=== PATIENT | female | born 1955 | race Caucasian/White ===

== ENCOUNTER 2017-05-14 08:17 | Observation (INO) ==
[2017-05-14] MEDS ORDERED: Naloxone 0.4 MG/ML INJ IVP PRN (12:13)
--- NOTE | 2017-05-14 12:18 | Cardiology History & Physical ---
Date of Encounter: 05/14/17 Time of Encounter: 12:15 Assessment and Plan (1) Chest pain Current Visit: Yes Status: Acute Per Cardiology: Chest pressure during nuclear stress test 12/20. Qualifiers: Qualified Code(s): I20.0 - Unstable angina (2) Abnormal stress test Current Visit: No Status: Acute Per Cardiology: History of abnormal stress test July 2013 with ECG of ischemia with [address] depression noted in the inferior leads and 1-2 mm horizontal to downsloping ST depression in anterior precordial leads with exercise. Chest pain -free during that stress test. He should again with significant ST depression, experienced chest pressure 6 out of 10, required his Oxygen and IV Beta Adalberto. Nuclear Pictures Pending. Patient Reviewed and Discussed with Dr. Cook , patient to be directly admitted to cardiology for left heart catheterization today. Discussed and reviewed with Dr. Pineda and Dr. Gautam. Further recommendations after catheterization. Labs pending. Had outpatient echo pending as well, we'll complete as inpatient (3) CAD (coronary artery disease), mo[place] coronary artery Current Visit: No Status: Chronic Per Cardiology: Known history of CAD with last catheterization June 2013 which showed left main 25%, proximal LAD 25%, mid LAD 65% with FFR of 0.83, proximal to mid 30-40 % RCA, 90% proximal circumflex with drug-eluting stent. Has intolerance to statins due to myalgias. On aspirin, beta adalberto, AKASH inhibitor, and long- acting nitrate. Qualifiers: [place] vs. transplanted heart: mohegan heart Associated angina: with unstable angina Qualified Code(s): I25.110 - Atherosclerotic heart disease of [place] coronary artery with unstable angina pectoris History of Present Illness Chief complaint: CP HPI: Ms. Franklin is a 61 year old female with a relevant past medical history of CAD, hypertension, DM 2, dyslipidemia. Past history of nicotine abuse. Patient seen by Dr. Fiona Severino March 2017 and exercise nuclear stress test ordered for increasing fatigue and mild dyspnea on exertion. Patient seen today during exercise nuclear stress test and developed midsternal heaviness 6 out of 10 during exertional stress test. Additionally developed significant ST depression noted. Patient required nasal cannula oxygen and IV Lopressor 2.5 mg 1 for resolution of chest pain, ST changes, and blood pressure optimization. Patient reports at home has not been experiencing any chest pain, however reports with cold has noticed chest burning. She admits to increased fatigue and increased dyspnea on exertion. She denies any palpitations, dizziness, syncopal because of falls. Denies any active bleeding or blood loss. Reports has not utilized nitroglycerin pills. She reports heart attack a few years ago with stenting and had remaining blockage that was "being monitored ". Past Med Surg Social Fam HX - Past Medical History Attestation: Yes The following information was validated with the patient. Source: patient, old records reviewed Medical history: asthma, diabetes, GERD, hyperlipidemia, hypertension, myocardial infarction Psychiatric history: anxiety, depression - Past Surgical History Surgical History: - Social History Smoking Status: Former smoker Smokeless Tobacco Status: No Alcohol use: none Drug use: none - Family History Mother Adopted: No Family Member Ethnicity: Non- Living Status: Still Living Hx Family Cardiac Disorders: No Hx Family Respiratory Disorders: No Hx Family Cancer: No Father Adopted: No Family Member Ethnicity: Non- Living Status: Hx Family Cardiac Disorders: Yes Hx Family Respiratory Disorders: No Hx Family Cancer: Yes Hx Family Endocrine Disorder: Yes Brother Adopted: No Family Member Ethnicity: Non- Living Status: Still Living Hx Family Cardiac Disorders: Yes Hx Family Respiratory Disorders: No Hx Family Cancer: No Hx Family GI Disorders: No Medications and Allergies Insulin DETEMIR [Levemir Flextouch] 60 unit SQ BID 09/02/15 [History] Isosorbide MONOnitrate (24 HR) [Imdur] 30 mg PO DAILY 09/02/15 [History] Lisinopril [Zestril] 5 mg PO BID 09/02/15 [History] Metoprolol [Lopressor] 25 mg PO BID 09/02/15 [History] Omeprazole [PriLOSEC] 20 mg PO DAILY 09/02/15 [History] Paroxetine [Paxil] 10 mg PO DAILY 09/02/15 [History] hydroCHLOROthiazide [Hydrochlorothiazide] 25 mg PO DAILY 09/02/15 [History] Aspirin/Calcium Carbonate/Mag [Aspirin Buffered 325 mg Tab] 325 mg PO DAILY #30 tablet 09/04/15 [Rx] Ibuprofen [Motrin] 800 mg PO Q8HR PRN 05/14/17 [History] 3 Allergy/AdvReac Type Severity Reaction Status Date / Time Smxpzku-Nbc-Kzj Reductase AdvReac Muscle Pain Verified 12/31/15 00:01 Inhibitor [Statins] All Systems Review: A 10-system review of systems was performed and is negative for pertinent findings except as documented above in the HPI. - Constitutional Constitutional: fatigue - Cardiovascular Cardiovascular: as per HPI, chest pain with exertion, dyspnea on exertion Physical Examination General: Conversant, No Apparent Distress HEENT: Atraumatic, Normocephaly, Mucus Membranes Moist Neck: No JVD, Normal carotid pulses Cardiac: Reg Rate and Rhythm, Normal S1 and S2, No Murmur Lungs: Normal Breath Sounds, No Wheeze, Rales, Rhonchi Neuro: Alert and responsive, No focal deficits noted Abdomen: Soft, Non-Tender Skin: No rashes noted on visualized skin Musculoskeletal: No Chest Wall Tenderness Extremities: No Clubbing, No Cyanosis, No Edema, Normal Pulses Results 05/14/17 12:49 05/14/17 12:49 - Imaging and Cardiology Stress Test: pending Cardiac cath: pending - EKG Interpretation EKG results cardiology: personally reviewed, other (ST depression with CP 6/10 during exercise nuclear stress test) - VTE Reasons for not Prescribing Prophylaxis: Treatment not Indicated - Low risk for VTE
[2017-05-14] MEDS ORDERED: *HR* Metoprolol 5 MG/5 ML VIAL IVP ONE (12:39)
[2017-05-14 13:11] LABS: Basophils # 0.1 K/mcL (0.0-0.2); Basophils % 0.6 %; Eosinophils # 0.6 K/mcL (0.0-0.6); Eosinophils % 6.4 %; Hematocrit 35.4 % (35.3-44.9); Hemoglobin 11.1 g/dL (11.5-15.4); Immature Granulocytes % 0.7 % (0-4); Lymphocytes # 2.2 K/mcL (0.6-4.6); Lymphocytes % 24.4 %; Mean Corpuscular HGB Conc 31.4 g/dL (31.6-35.5); Mean Corpuscular Hemoglobin 23.9 pg (28.0-33.3); Mean Corpuscular Volume 76.1 fL (83.0-100.0); Mean Platelet Volume 9.5 fL (9.4-12.4); Monocytes # 0.5 K/mcL (0.0-1.3); Monocytes % 5.7 %; Neutrophils # 5.5 K/mcL (1.6-8.9); Platelet Count 284 K/mcL (140-400); Red Blood Count 4.65 M/mcL (3.82-4.97); Red Cell Distribution Width 15.9 % (11.5-14.5); Segmented Neutrophils % 62.2 %
[2017-05-14 13:16] LABS: Prothrombin Time 10.3 Seconds (9.4-12.1)
[2017-05-14] MEDS ORDERED: Ibuprofen 800 MG TABLET PO PRN (13:17)
[2017-05-14 13:23] LABS: BUN/Creatinine Ratio 28 (6-26); Blood Urea Nitrogen 19 mg/dL (7-20); Carbon Dioxide 26 mEq/L (19-29); Chloride 101 mEq/L (98-109); Glucose 140 mg/dL (70-99); Osmolality,Calculated 291 (280-300); Potassium 3.8 mEq/L (3.5-4.5); Sodium 138 mEq/L (136-145); eGFR For African Americans > 60 (> 60); eGFR For Non-African Americans > 60 (> 60)
[2017-05-14] MEDS: Aspirin Enteric Coated 325 MG Tablet PO SCH (13:38)
[2017-05-14] MEDS ORDERED: Nitroglycerin 1,000 MCG/10 ML VIAL IV ONE (15:16)
[2017-05-14] MEDS ORDERED: 0.9 % Sodium Chloride 2,000 ML ONE (15:16)
[2017-05-14] MEDS ORDERED: Heparin 1,000 UNITS/500 mL NS 500 ML ONE (15:16)
[2017-05-14] MEDS ORDERED: *HR* Heparin 10,000 UNIT/10 ML VIAL ONE (15:16)
[2017-05-14] MEDS ORDERED: *HR* Midazolam HCl 2 MG/2 ML VIAL ONE (15:21)
[2017-05-14] MEDS ORDERED: *HR* Bivalirudin 250 MG VIAL IVC ONE (16:16)
[2017-05-14] MEDS ORDERED: *HR* Ticagrelor 90 MG TABLET ONE (16:27)
[2017-05-14] MEDS ORDERED: 0.9 % Sodium Chloride 1,000 ML IVC SCH (16:45)
--- NOTE | 2017-05-14 16:48 | Invasive Diagnostic Lab Proc ---
Name: Lisbeth Franklin Date of Study: 05/14/2017 Date: 1955 Ht: 64.0in Medical Record#: [id number] Age: 61 Wt: 198.42lb Gender: Female BSA: 1.95 Order #: [id number] BMI: 34.06 Physicians Procedure Physician: Mark Gautam DO Referring MD: Referring MD: Staff Name Position Time In Day Jasso RT (R) Scrub 03:35 PM Chanelle Matos RN Monitor 03:35 PM Nguyen Carreon RN Energy Economist 03:35 PM Indications Indication Abnormal Test - Stress Procedures Performed Procedure L HRT ARTERY/VENTRICLE ANGIO PRQ CARD CLARENCE STENT W/ANGIO 1 VSL Pre-Procedure Checklist Informed consent is complete signed and on chart. H&P is on chart. ID band is on and ID verified with patient. Patient NPO for procedure The procedure was described for the patient and questions were answered. Blood Pressure: 154/79 ECG is on chart. Rhythm: NSR Plan of Care Patient will tolerate the procedure without complications. Adequate level of comfort will be maintained. Hemodynamics will remain stable Patient will recover from procedure without complications. Respiratory function will be maintained. Cardiac rhythm will remain stable. Patient temperature will be maintained. Patient and/or family have verbalized understanding of the procedure. Patient Education Chief Complaint/Reason for Test: Cardiac Cath Developmental Category: Adult (18-64 years) Developmentally Appropriate for Age: Yes Learning Barriers: None Education Needs: Procedure Education Method: Verbal Information Taught: Cardiac Cath Educational Evaluation: Able to repeat information Intravenous Access Time IV Size Location DC'd Fluid/Drip Rate Units RN 03:24 PM 22g 1" Patent On Arrival Rt Hand 0.9NaCl 25 ml/hr Chanelle Matos RN Allergies Simvastatin Qzkkgbv-Qtm-Wzi Reductase Inhibitor Vital Signs Time BP (mmHg) HR (bpm) O2 Sat. RR (bpm) LOC 03:23 PM 154 / 79 70 98 % 16 5 = Fully awake and oriented or at pre-proc level 03:39 PM / % 5 = Fully awake and oriented or at pre-proc level 03:39 PM / % 4 = Oriented but drowsy 04:03 PM / % 4 = Oriented but drowsy 03:36 PM 158 / 82 79 99 % 12 03:40 PM 156 / 77 72 100 % 20 03:45 PM 142 / 67 70 99 % 15 03:50 PM 136 / 68 69 99 % 18 03:55 PM 131 / 67 68 99 % 17 04:00 PM 134 / 62 66 99 % 17 04:05 PM 148 / 74 65 100 % 9 04:10 PM 153 / 73 67 100 % 10 04:15 PM 162 / 75 68 100 % 21 04:20 PM 169 / 79 57 100 % 16 04:25 PM 171 / 84 73 98 % 12 Procedural Medications Time Medication Dose Units Method Given By 03:39 PM Versed 2 mg Intravenous Nguyen Carreon RN 04:04 PM Lidocaine 2% 10 ml Subcutaneous Mark Gautam DO 04:13 PM Angiomax 0.75mg/kg bolus: 13.5 ml Intravenous Nguyen Carreon RN 04:13 PM Angiomax 1.75mg/kg/hr: 31.5 ml Intravenous Nguyen Carreon RN 04:22 PM Nitroglycerin 100 mcg Intracoronary Mark Gautam DO 04:26 PM Angiomax 1.75mg/kg/hr: ml Dc'd Nguyen Carreon RN 04:26 PM Brilinta 180 mg Orally Nguyen Carreon RN ASA Classification: CLASS III- Severe systemic disease (i.e. prior AMI, diabetes with vascular complications, morbid obesity) Lj Score Preprocedure Postprocedure Activity 2- Moves 4 extremities sustained head lift Activity 2- Moves 4 extremities sustained head lift Circulation 2- SBP +/= 20 points of pre-anesthetic level Circulation 2- SBP +/= 20 points of pre-anesthetic level Consciousness 2- Awake and alert oriented x 3 Consciousness 2- Awake and alert oriented x 3 O2 Saturation 2- Able to maintain O2 satruation of 92% on room air O2 Saturation 2- Able to maintain O2 satruation of 92% on room air Respiratory 2- Able to deep breathe and cough well Respiratory 2- Able to deep breathe and cough well Total Score 10 Total Score 10 Contrast Agent: Isovue Diagnostic Contrast: 90 ml Total Contrast: 90 ml Fluoro Dose: 612 mGy Procedure Log Time Note Enter By 03:26 PM Pt arrived to labor gang supervisor 2 at 15:26 [facility] 03:34 PM Vitals capture started with the following parameters, Patient=Adult, Interval=5 min, Initial Hbpjseny=709 mmHg, Deflation Rate=5 mmHg, Cuff placed on Right Arm 03:34 PM CathStat 03:35 PM Romero, Day RT (R) Position: Scrub Time in: 15:35 [email or web address] 03:35 PM Chanelle Matos RN Position: Monitor Time in: 15:35 [email or web address] 03:35 PM Nguyen Carreon RN Position: Energy Economist Time in: 15:35 [email or web address] 03:35 PM Physician arrived 15:35 [email or web address] 03:35 PM Meet and greet completed [email or web address] 03:35 PM Sign in performed according to hospital policy. [email or web address] 03:35 PM Procedure start 15:35 [email or web address] 03:35 PM ASA Class CLASS III- Severe systemic disease (i.e. prior AMI, diabetes with vascular complications, morbid obesity) [email or web address] 03:36 PM HR=79 bpm, GHHL=739/82 mmhg, SpO2=99.0 %, Resp=12 B/min, Comment=nsr 03:39 PM Patient charges- Angio tray pack, Navilyst 3mm J, Pulse Oximetry and ACIST tubing and transducer scoates 03:39 PM Hair removed from procedure site in procedure lab using clippers. Bilateral groin prepped with Chloraprep by Chanelle Matos RN, safety strap applied then patient was draped. Skin intact. scoates 03:39 PM Time: 15:39 Patient comfortable and pain free: Yes scoates 03:39 PM Time: 15:39LOC: 5 = Fully awake and oriented or at pre-proc level scoates 03:39 PM Time: 15:39 Versed 2 mg Intravenous Given by Nguyen Carreon RN scoates 03:40 PM Clinical Presentation: Stable angina scoates 03:40 PM HR=72 bpm, XOAM=669/77 mmhg, DbO3=150.0 %, Resp=20 B/min, Comment=nsr 03:40 PM Case Delayed No, inpatient scoates 03:44 PM Pressure channel 2 zeroed. 03:45 PM HR=70 bpm, QHID=577/67 mmhg, SpO2=99.0 %, Resp=15 B/min, Comment=nsr 03:50 PM HR=69 bpm, PTHM=590/68 mmhg, SpO2=99.0 %, Resp=18 B/min 03:55 PM HR=68 bpm, CQHT=650/67 mmhg, SpO2=99.0 %, Resp=17 B/min 04:00 PM HR=66 bpm, TZOL=229/62 mmhg, SpO2=99.0 %, Resp=17 B/min 04:03 PM Time: 15:39LOC: 4 = Oriented but drowsy scoates 04:03 PM Time: 15:39 Patient comfortable and pain free: Yes scoates 04:04 PM Time out performed according to hospital policy scoates 04:05 PM HR=65 bpm, SFVZ=887/74 mmhg, JrE0=915.0 %, Resp=9 B/min, Comment=nsr 04:05 PM Time: 16:04 10 ml Lidocaine 2% to right groin Subcutaneous Given by Mark Gautam, DO scoates 04:05 PM Micro-Introducer Kit utilized for sheath placement scoates 04:06 PM Access obtained by percutaneous puncture. 6Fr 10cm Terumo Boyce sheath placed in right Femoral artery. [id number] scoates 04:06 PM Pressure channel 2 zeroed. 04:07 PM 6Fr FR 4 catheter inserted over the wire DN scoates 04:07 PM Recorded Pressure: LV, HR=76, Condition=Condition 1 (Left Ventricle) LV 139/26/6 04:08 PM Recorded Pressure: LV, Ao, HR=66, Condition=Condition 1 (Left Ventricle) LV 147/55/2, (Aorta) Ao 123/36/73 04:08 PM Catheter selectively placed in left ventricle scoates 04:08 PM Bolus angiogram of left Ventricle complete: 10mls hand injected. scoates 04:08 PM RCA angiography performed in multiple views. scoates 04:09 PM Catheter removed scoates 04:09 PM 6Fr FL 4 catheter inserted over the wire DN scoates 04:10 PM Recorded Pressure: Ao, HR=63, Condition=Condition 1 (Aorta) Ao 145/60/93 04:10 PM LCA angiography performed in multiple views. scoates 04:10 PM HR=67 bpm, TLTS=452/73 mmhg, QeZ7=109.0 %, Resp=10 B/min, Comment=nsr 04:11 PM Recorded Pressure: Ao, HR=68, Condition=Condition 1 (Aorta) Ao 129/52/80 04:12 PM Lesion found in Distal RCA. Pre Stenosis: 50 Pre SILVER Flow: scoates 04:12 PM Catheter removed scoates 04:12 PM PCI Status Urgent scoates 04:12 PM Inflation device was opened. scoates 04:13 PM .014 Choice Extra Support 300cm guide wire across target lesion- successful. reused? No scoates 04:13 PM Time: 16:13 Angiomax 0.75mg/kg bolus: 13.5 ml Intravenous Given by Nguyen Carreon RN Marsh pump scoates 04:13 PM Time: 16:13 Angiomax 1.75mg/kg/hr: 31.5 ml Intravenous Given by Nguyen Carreon RN Marsh pump scoates 04:13 PM Coronary Dominance: right scoates 04:14 PM Lesion found in Mid LAD. Pre Stenosis: 85 Pre SILVER Flow: 3: Complete and Brisk Flow/Perfusion scoates 04:14 PM 6Fr JL3.5 vista britet tip guide catheter was used to cannulate the PCI vessel successfully. reused? No scoates 04:14 PM Recorded Pressure: Ao, HR=67, Condition=Condition 1 (Aorta) Ao 162/73/109 04:15 PM HR=68 bpm, LDWP=909/75 mmhg, GpZ4=204.0 %, Resp=21 B/min, Comment=nsr 04:15 PM Guide catheter removed intact. scoates 04:16 PM 6Fr XB LAD 3.5 Schurz Bright-Tip guide catheter was used to cannulate the PCI vessel successfully. reused? No scoates 04:18 PM Time: 16:03 Patient comfortable and pain free: Yes scoates 04:18 PM Time: 16:03LOC: 4 = Oriented but drowsy scoates 04:20 PM 2.25mm x 16mm Synergy drug-eluting stent across target lesion- successful Lot #[id number] scoates 04:20 PM HR=57 bpm, HUBC=672/79 mmhg, NqV6=745.0 %, Resp=16 B/min, Comment=nsr 04:20 PM Stent deployed @ 14 [email or web address] for 16 seconds scoates 04:21 PM Stent balloon reinflated @ 16 [email or web address] for 14 seconds scoates 04:21 PM Recorded Pressure: Ao, HR=71, Condition=Condition 1 (Aorta) Ao 166/76/114 04:22 PM Time: 16:22 Nitroglycerin 100 mcg Intracoronary Given by Mark Gautam DO scoates 04:22 PM Stent delivery system removed intact. scoates 04:23 PM Lesion found in Mid LAD. Pre Stenosis: 85 Pre SILVER Flow: 3: Complete and Brisk Flow/Perfusion scoates 04:24 PM Guide wire removed intact. scoates 04:25 PM HR=73 bpm, RBRL=123/84 mmhg, SpO2=98.0 %, Resp=12 B/min 04:26 PM Time: 16:26 Angiomax 1.75mg/kg/hr: ml Dc'd Given by Nguyen Carreon RN Marsh pump scoates 04:26 PM Time: 16:26 Brilinta 180 mg Orally Given by Nguyen Carreon RN scoates 04:26 PM Bolus angiogram of right Femoral complete: 5mls hand injected scoates 04:28 PM Procedure completed at 16:28 scoates 04:28 PM Sign out completed: Radiation Dose 612 mGy Fluoro Time: 5.5 Isovue 370 - 200ml contrast 90 ml given by Mark Gautam DO. Complications: NoneCardiac Rehab Consult needed: YesConfirmed administered medications: Yes scoates 04:28 PM Arterial sheath pulled, Angio-seal closure device used and was Successful 999001 S/N. scoates 04:28 PM Post ECG NSR scoates 04:28 PM Post Blood Pressure 171/84 scoates 04:28 PM 16:28 Post Pulses Bilateral DP & PT 2+ scoates 04:29 PM Information taught Cardiac Cath and Angioseal scoates 04:29 PM Education needs Procedure, Plan of Care, and Responsibilities of Patient in Care scoates 04:29 PM Learning barriers :None scoates 04:29 PM Education Methods Verbal scoates 04:29 PM Education evaluation Able to repeat information scoates 04:29 PM Site status No bleeding/hematoma - Rt Groin as reported by Day Jasso RT (R) at 16:29 scoates 04:29 PM Plavix, Effient or Brilinta given Yes scoates 04:30 PM Vitals capture stopped. 04:31 PM Delay to floor No scoates 04:31 PM Family placed in consult room. scoates 04:35 PM Report given to Darlene COCHRAN Pt taken to 2N Room #4. 16:35 scoates 04:37 PM Patient out of room: 16:37 [email or web address] Complications Complication None Hemodynamics Pressures Site Systolic/A Wave Diastolic/V Wave Mean LV 139 26 6 LV 147 55 2 AO 123 36 73 AO 145 60 93 AO 129 52 80 AO 162 73 109 AO 166 76 114 Post Procedure Information Blood Pressure: 171/84 mmHg Rhythm: NSR Post procedural instructions were given Closure Device Time Device Success/Fail 05/14/2017 4:30:00 PM Angio-Seal VIP Successful Site Checks Time Location Status Staff Sheath In? Note 04:29 PM Rt Groin No bleeding/hematoma Day Jasso RT (R) Pulses Time Site Pre-Procedure Post-Procedure Note 05/14/2017 3:25:00 PM Bilateral DP & PT 2+ 05/14/2017 3:25:00 PM Bilateral radial 2+ 4:28:00 PM Bilateral DP & PT 2+ Updated by Gilda Gonzalez RN on 05/14/2017 4:40:16 PM electronically signed on 05/14/2017 4:41:18 PM with status of Final
[2017-05-14] MEDS ORDERED: *HR* Morphine 2 MG/ML SYRINGE IVP ONE ×2 (16:49→17:32)
[2017-05-14] MEDS ORDERED: *HR* Morphine 2 MG/ML SYRINGE ONE ×2 (16:53→17:35)
[2017-05-14] MEDS ORDERED: Nitroglycerin 0.4 MG TAB.SUBL SL ONE (17:53)
[2017-05-14] MEDS: Nitroglycerin 0.4 MG TAB.SUBL SL PRN ×2 (17:56→18:39)
--- NOTE | 2017-05-14 18:27 | Event Note ---
Date of Encounter: 05/14/17 Time of Encounter: 16:10 - Cardiology Event Note C results: LV = normal, EF 65% LMT - OK LAD - 85% mid, to 0% post stent deployment, D2 is mildly jailed, but retains SILVER 3 flow Cx - Mildly diffusely diseased, no focal stenosis > 30% RCA - mildly diffusely diseased, no focal stenosis greater than 35%
[2017-05-14] MEDS: *HR* Ticagrelor 90 MG TABLET PO SCH (19:59)
[2017-05-14] MEDS: Insulin DETEMIR 100 UNIT/ML X5UNITS SQ SCH ×2 (19:59→20:58)
[2017-05-14] MEDS ORDERED: Nitroglycerin 25 MG/250 ML INFUS..BTL IVC SCH (20:45)
[2017-05-15 06:57] VITALS: BP 137/71
[2017-05-15] MEDS: *HR* Ticagrelor 90 MG TABLET PO SCH (08:31)
[2017-05-15] MEDS: Aspirin Enteric Coated 325 MG Tablet PO SCH (08:31)
[2017-05-15] MEDS ORDERED: Isosorbide MONOnitrate (24 HR) 30 MG TAB.ER.24H PO SCH (09:00)
[2017-05-15] MEDS ORDERED: hydroCHLOROthiazide 25 MG TABLET PO SCH (09:00)
[2017-05-15 09:37] LABS: Basophils % 0.2 %; Eosinophils # 0.3 K/mcL (0.0-0.6); Eosinophils % 2.9 %; Hematocrit 34.6 % (35.3-44.9); Hemoglobin 10.7 g/dL (11.5-15.4); Immature Granulocytes % 0.6 % (0-4); Lymphocytes # 2.3 K/mcL (0.6-4.6); Lymphocytes % 26.3 %; Mean Corpuscular HGB Conc 30.9 g/dL (31.6-35.5); Mean Corpuscular Volume 77.6 fL (83.0-100.0); Mean Platelet Volume 9.5 fL (9.4-12.4); Monocytes # 0.5 K/mcL (0.0-1.3); Monocytes % 6.2 %; Neutrophils # 5.6 K/mcL (1.6-8.9); Platelet Count 294 K/mcL (140-400); Red Blood Count 4.46 M/mcL (3.82-4.97); Red Cell Distribution Width 15.9 % (11.5-14.5); Segmented Neutrophils % 63.8 %
[2017-05-15 09:51] LABS: BUN/Creatinine Ratio 19 (6-26); Blood Urea Nitrogen 13 mg/dL (7-20); Calcium 9.3 mg/dL (8.6-10.8); Carbon Dioxide 24 mEq/L (19-29); Chloride 101 mEq/L (98-109); Glucose 182 mg/dL (70-99); Osmolality,Calculated 287 (280-300); Potassium 3.6 mEq/L (3.5-4.5); Sodium 136 mEq/L (136-145); eGFR For African Americans > 60 (> 60); eGFR For Non-African Americans > 60 (> 60)
[2017-05-15] MEDS: Insulin DETEMIR 100 UNIT/ML X5UNITS SQ SCH (10:06)
--- NOTE | 2017-05-15 10:17 | Discharge Summary ---
Date of Encounter: 05/15/17 Time of Encounter: 10:10 - Discharge Diagnosis (1) CAD (coronary artery disease), [place] coronary artery Priority: Primary Status: Chronic Qualifiers: [place] vs. transplanted heart: [place] heart Associated angina: angina presence unspecified Qualified Code(s): I25.10 - Atherosclerotic heart disease of [place] coronary artery without angina pectoris (2) Abnormal stress test Priority: Secondary Status: Acute - Discharge Medications Prescriptions: Aspirin 81 mg PO DAILY #30 tab.chew hydroCHLOROthiazide [Hydrochlorothiazide] 25 mg PO DAILY #30 tablet Isosorbide MONOnitrate (24 HR) [Imdur] 30 mg PO DAILY #30 tab.er.24h Lisinopril [Zestril] 5 mg PO BID #60 tablet Metoprolol [Lopressor] 25 mg PO BID #60 tablet Ticagrelor [Brilinta] 90 mg PO BID #60 tablet Home Medications: Insulin DETEMIR [Levemir Flextouch] 60 unit SQ BID 09/02/15 [History] Omeprazole [PriLOSEC] 20 mg PO DAILY 09/02/15 [History] Paroxetine [Paxil] 10 mg PO DAILY 09/02/15 [History] Ibuprofen [Motrin] 800 mg PO Q8HR PRN 05/14/17 [History] Aspirin 81 mg PO DAILY #30 tab.chew 05/15/17 [Rx] Insulin ASPART [Novolog Flexpen] 0 unit SQ TID PRN 05/15/17 [History] Isosorbide MONOnitrate (24 HR) [Imdur] 30 mg PO DAILY #30 tab.er.24h 05/15/17 [ Rx] Lisinopril [Zestril] 5 mg PO BID #60 tablet 05/15/17 [Rx] Metformin HCl [Glucophage] 1,000 mg PO BID 05/15/17 [History] Metoprolol [Lopressor] 25 mg PO BID #60 tablet 05/15/17 [Rx] Ticagrelor [Brilinta] 90 mg PO BID #60 tablet 05/15/17 [Rx] hydroCHLOROthiazide [Hydrochlorothiazide] 25 mg PO DAILY #30 tablet 05/15/17 [Rx ] Allergies/Adverse Reactions: 3 Allergy/AdvReac Type Severity Reaction Status Date / Time Wgmeler-Yzm-Jci Reductase AdvReac Muscle Pain Verified 12/31/15 00:01 Inhibitor [Statins] Procedures/tests Complete & Pending: Procedures Performed prior 72 hours Category Date Time Status CL Cardiac Catheterization [CL] Routine Inpatient Auditor 05/14/17 12:12 Ordered NM xiao perf SPECT multi [NM] Routine Exams 05/14/17 08:30 Taken SP exercise nuclear stress Routine Y 05/14/17 08:30 Completed Date of admission: 05/14/17 12:38 Primary care physician: Umm Tsai Consults: 05/15/17 07:52 Consult to Cardiac Rehabilitation-Phase1 [CONS] Routine Comment: Reason for Consult: CAD, s/p stent Call Completed: No Discharging clinician: Moose Isbell Anticipated date of discharge: 05/15/17 - Patient Status Disposition: Home, Self-Care Condition: Fair Functional capacity at discharge: independent ambulation Overall status at discharge: patient is progressing back to baseline - Discharge Instructions Follow Up With: Fiona Severino MD [Partnered Physician] - (OFFICE WILL CALL PATIENT WITH FOLLOW UP APPOINTMENT) Umm Tsai CNP [Primary Care Provider] - 05/22/17 9:30 am Additional Instructions: RISK FACTORS: STOP SMOKING: If you smoke, STOP. Smoking or tobacco use significantly increases your risk of heart disease because nicotine causes the arteries to narrow or constrict. It also causes fats to stick to the artery. Your chances of having a heart attack are greatly increased if you continue to smoke. For more information, call the education line for smoking cessation 7-941-STAKSSR EAT A LOW FAT/CHOLESTEROL/SODIUM DIET: This diet may help reduce your chances of having a heart attack. LIFTING: Avoid lifting anything more than 10 pounds for 5-7 days Prior to straining, laughing, sneezing and/or coughing, apply manual pressure directly over insertion site. ACTIVITY: You may walk or climb stairs as tolerated You can resume sexual activity as tolerated In general, you are encouraged to engage in a minimum of 30 minutes or more of moderate intensity physical activity, such as brisk walking, daily or at least 3 -4 times weekly BATHING Do not submerge the site into water (bath tub, hot tub, swimming pool) for 1 week. This can be a source for infection into the blood stream. You may shower after 24 hours SITE CARE: After 24 hours, you may remove the dressing and leave the site open to air. Keep the site clean and dry. Clean gently and pat dry. You can expect bruising and tenderness that gradually resolve within a week or two. Return to work as instructed per your physician Resume driving as instructed per physician Keep all scheduled follow up appointments Resume medications as instructed IMPORTANT: If prescribed a Platelet Aggregation Inhibitor such as, Plavix, Brilinta or Effient: Duration of therapy is minimum one year These medications are often used in combination with Aspirin in prevention of future heart attacks Never discontinue unless consult with your [place] Guide STROKE (CVA) Risk factors for a stroke are: Age, cigarette smoking, diabetes, excessive alcohol consumption, family history, high blood pressure, overweight, physical inactivity, prior stroke, heart attack, diagnosis of carotid artery stenosis or other artery disease. Warning signs: Sudden numbness or weakness of the face, arm or leg; especially on one side of the body, sudden confusion, trouble speaking or understanding, sudden trouble seeing in one or both eyes, sudden trouble walking, dizziness, loss of balance or coordination, sudden severe headache with no cause. Call 911 or go to the Emergency Room. CONGESTIVE HEART FAILURE: If you have been diagnosed with Congestive Heart Failure (CHF) and your symptoms return, make an appointment with your physician Weigh yourself daily. Notify your physician if you have a weight gain of two or more pounds in one day or five or more pounds in one week. If you experience any difficulty breathing, please call 911 BLEEDING: Although the risk of bleeding is minimal, it can happen. If you have any bleeding from the site, apply firm pressure above the puncture site for 10-15 minutes. If the bleeding does not stop, continue manual pressure and call 911 Contact your physician if: You develop a fever greater than 101 degrees Fahrenheit Your site becomes reddened or has any drainage You have an increase in pain or burning at the site or if a large knot forms at the site. If you experience chest pain, shortness of breath, dizziness, or extreme tiredness, stop the activity and rest. Please notify your physicians office if you experience any of these symptoms and they are not relieved by rest please call 911! - Diet and Activity Activity: increase activity as tolerated Diet: low fat, low cholesterol - Hospital Course Hospital course: Ms. Franklin is a 61 year old female that presented for outpt stress test. She had EKG changes positive for ischemia, TID, and mild intensity stress perfusion defect involving mid to distal anterior wall and apex representing ischemia. She was admitted for C. LHC yesterday revealed 85% mid LAD lesion, s/p PCI/ CLARENCE. D2 mildly jailed, but retains SILVER 3 flow. Final cath report pending. Pt denies chest pain or dyspnea overnight. Vitals and labs stable. DAPT (ASA and Brilinta) x 1 year. Pt verbalizes understanding. Continue BB and ACEi. No Statin due to intolerance/myalgias. Right femoral access site healing well. No bleeding, hematoma or ecchymosis noted. Pulses 2+ palpable and symmetrical. Free 30 day Brilinta card given. Restrictions discussed. Pt being discharged home in stable condition, follow-up in 3-4 weeks as outpt, will coordinate. Instructed to hold Metformin 2 days s/p LHC. - Time Spent with Patient Total time spent providing and/or coordinating discharge services: Less than 30 minutes Physical Examination Vital Signs, Last 4 Hours Temp Pulse BP 05/15/17 06:51 98.0 F 66 137/71 Vital Signs Temp Pulse Resp BP Pulse Ox 05/15/17 06:51 98.0 F 66 137/71 05/15/17 05:00 74 149/79 05/15/17 04:16 73 145/67 05/15/17 04:15 83 158/78 05/15/17 04:00 72 145/72 05/15/17 03:18 97.9 F 84 16 136/71 97 05/15/17 02:00 72 129/61 05/15/17 01:00 67 129/82 05/15/17 00:00 64 126/62 05/14/17 23:46 98.1 F 61 17 149/83 96 05/14/17 23:00 78 149/83 05/14/17 22:00 77 132/72 05/14/17 21:00 82 149/79 05/14/17 18:45 98.0 F 74 18 126/59 93 05/14/17 18:30 65 130/67 05/14/17 18:00 73 112/63 05/14/17 17:30 72 158/72 05/14/17 17:15 72 149/68 05/14/17 17:00 65 150/71 05/14/17 16:50 97.7 F 66 16 159/78 98 05/14/17 12:53 97.6 F 70 16 154/79 98 Intake and Output 05/14/17 05/15/17 05/15/17 23:59 07:59 15:59 Intake Total 340 / 340 120 / 120 750 / 750 Output Total 200 / 200 300 / 300 Balance 140 / 140 -180 / -180 750 / 750 Intake: IV Fluids 20 / 20 230 / 230 Nitroglycerin Premix 25 MG/250 20 / 20 230 / 230 ML 25 mg In 250 ml @ 5 MCG/MIN 3 mls/hr IVC .Q24H MAGDA Rx#: [id number] Oral 340 / 340 100 / 100 520 / 520 Output: Urine 200 / 200 300 / 300 Other: Meal Breakfast Percent of Meal Consumed 100% # Voids 1 Weight 90.7 kg Blood Glucose* 276 154 Patient Weight 05/15/17 23:59 Weight 90.7 kg General: Conversant, No Apparent Distress HEENT: Atraumatic, Normocephaly, Mucus Membranes Moist Neck: No JVD, Normal carotid pulses Cardiac: Reg Rate and Rhythm, Normal S1 and S2, No Murmur Lungs: Normal Breath Sounds, No Wheeze, Rales, Rhonchi Neuro: Alert and responsive, No focal deficits noted Abdomen: Soft, Non-Tender Skin: Other (right femoral access site healing well. No bleeding, hematoma or ecchymosis noted.) Musculoskeletal: No Chest Wall Tenderness Extremities: No Clubbing, No Cyanosis, No Edema, Normal Pulses - VTE Reasons for not Prescribing Prophylaxis: Treatment not Indicated - Low risk for VTE
[2017-05-15] MEDS ORDERED: FLUARIX QUAD 2017-18 36MOS UP/PF 0.5 ML SYRINGE IM ONE (10:59)
[2017-05-16] MEDS ORDERED: Aspirin 81 MG TAB.CHEW PO SCH (09:00)
--- NOTE | 2017-05-16 10:57 | Electrocardiograph Report ---
[address] [place], [place] [address] Test Date: 2017-05-14 Pat Name: Lisbeth Franklin Department: 110 Room: 2N04 Gender: F Senior Payroll Administrator: : [id number] Requested By: Kyaw Pineda Order Number: [id number] Reading MD: Carol Cook Measurements Intervals [place] Rate: 69 P: [place]: 0 QRS: 1 QRSD: 91 T: 2 QT: 398 QTc: 417 Interpretive Statements CONSIDER ECTOPIC ATRIAL RHYTHM MODERATE ST DEPRESSION - CONSIDER ISCHEMIA Electronically Signed On 05-16-2017 10:55:43 EDT by Carol Cook
== END 2017-05-15 13:00 | disposition home or self-care (01) ==
LOC: CARSER 08:17 → 2NNU 08:17
PROVIDERS: ADMIT Internal Medicine; ATTEND Internal Medicine

== ENCOUNTER 2019-01-24 14:04 | Observation (INO) ==
[2019-01-24] MEDS ORDERED: Aspirin 325 MG TABLET PO ONE (15:04)
[2019-01-24 15:16] LABS: Basophils % 0.5 %; Eosinophils # 0.5 K/mcL (0.0-0.6); Eosinophils % 5.8 %; Hematocrit 35.1 % (35.3-44.9); Hemoglobin 10.3 g/dL (11.5-15.4); Immature Granulocytes % 0.4 % (0-4); Lymphocytes # 2.2 K/mcL (0.6-4.6); Lymphocytes % 26.9 %; Mean Corpuscular HGB Conc 29.3 g/dL (31.6-35.5); Mean Corpuscular Hemoglobin 21.3 pg (28.0-33.3); Mean Corpuscular Volume 72.5 fL (83.0-100.0); Mean Platelet Volume 9.3 fL (9.4-12.4); Monocytes # 0.4 K/mcL (0.0-1.3); Monocytes % 4.8 %; Neutrophils # 4.9 K/mcL (1.6-8.9); Platelet Count 275 K/mcL (140-400); Red Blood Count 4.84 M/mcL (3.82-4.97); Red Cell Distribution Width 17.4 % (11.5-14.5); Segmented Neutrophils % 61.6 %
[2019-01-24 15:38] LABS: BUN/Creatinine Ratio 22 (6-26); Blood Urea Nitrogen 16 mg/dL (8-23); Calcium 9.2 mg/dL (8.6-10.3); Carbon Dioxide 26 mEq/L (23-29); Chloride 102 mEq/L (98-107); Glucose 188 mg/dL (70-105); Osmolality,Calculated 290 (280-300); Potassium 3.8 mEq/L (3.5-5.1); Sodium 137 mEq/L (136-145); Troponin I < 0.03 ng/mL (< 0.04); eGFR For African Americans > 60 (> 60); eGFR For Non-African Americans > 60 (> 60)
[2019-01-24] MEDS ORDERED: Acetaminophen 325 MG TABLET PO PRN (17:09)
[2019-01-24] MEDS ORDERED: Ondansetron ODT 4 MG TAB.RAPDIS SL PRN (17:09)
[2019-01-24] MEDS ORDERED: *HR* OxyCODONE Immed Rel 5 MG TABLET PO PRN (17:09)
[2019-01-24] MEDS ORDERED: Naloxone 0.4 MG/ML INJ IVP PRN (17:09)
[2019-01-24] MEDS ORDERED: *HR* Promethazine 25 MG/ML VIAL IVP PRN (17:09)
[2019-01-24] MEDS ORDERED: Nitroglycerin 0.4 MG TAB.SUBL SL PRN (17:49)
[2019-01-25 05:11] LABS: Basophils % 0.4 %; Eosinophils # 0.4 K/mcL (0.0-0.6); Eosinophils % 5.7 %; Hematocrit 33.3 % (35.3-44.9); Hemoglobin 9.9 g/dL (11.5-15.4); Immature Granulocytes % 0.4 % (0-4); Lymphocytes # 2.6 K/mcL (0.6-4.6); Lymphocytes % 35.6 %; Mean Corpuscular HGB Conc 29.7 g/dL (31.6-35.5); Mean Corpuscular Hemoglobin 21.3 pg (28.0-33.3); Mean Corpuscular Volume 71.8 fL (83.0-100.0); Mean Platelet Volume 9.2 fL (9.4-12.4); Monocytes # 0.4 K/mcL (0.0-1.3); Neutrophils # 3.8 K/mcL (1.6-8.9); Platelet Count 263 K/mcL (140-400); Red Blood Count 4.64 M/mcL (3.82-4.97); Red Cell Distribution Width 17.3 % (11.5-14.5); Segmented Neutrophils % 51.9 %; White Blood Count 7.4 K/mcL (4.3-11.1)
[2019-01-25 05:34] LABS: BUN/Creatinine Ratio 22 (6-26); Blood Urea Nitrogen 14 mg/dL (8-23); Calcium 9.5 mg/dL (8.6-10.3); Carbon Dioxide 29 mEq/L (23-29); Chloride 100 mEq/L (98-107); Glucose 157 mg/dL (70-105); Osmolality,Calculated 292 (280-300); Potassium 3.6 mEq/L (3.5-5.1); Sodium 139 mEq/L (136-145); eGFR For African Americans > 60 (> 60); eGFR For Non-African Americans > 60 (> 60)
[2019-01-25] MEDS: *HR* Enoxaparin 40 MG/0.4 ML SYRINGE SQ SCH (08:09)
[2019-01-25] MEDS: hydroCHLOROthiazide 25 MG TABLET PO SCH (08:09)
[2019-01-25] MEDS: Aspirin 81 MG TAB.CHEW PO SCH (08:09)
[2019-01-25] MEDS: PARoxetine 20 MG TABLET PO SCH (08:10)
[2019-01-25] MEDS: Isosorbide MONOnitrate (24 HR) 30 MG TAB.ER.24H PO SCH (08:11)
[2019-01-25] MEDS: Insulin DETEMIR 100 UNIT/ML X5UNITS SQ SCH ×3 (08:11→23:12)
[2019-01-25] MEDS ORDERED: Regadenoson 0.4 MG/5 ML SYRINGE IVP ONE (08:33)
[2019-01-25] MEDS ORDERED: Dextrose Gel 15 GM/37.5 ML TUBE PO PRN ×2 (13:18)
[2019-01-25] MEDS ORDERED: D5% in Water 1,000 ML IVC PRN (13:18)
[2019-01-25] MEDS ORDERED: *HR* Dextrose 50 % in Water (Syg) 50 ML SYRINGE IVP PRN (13:18)
[2019-01-25] MEDS: Insulin LISPRO 300 UNITS/3 ML VIAL SQ SCH (16:48)
[2019-01-26] MEDS: *HR* Enoxaparin 40 MG/0.4 ML SYRINGE SQ SCH (03:39)
[2019-01-26 05:27] LABS: Basophils % 0.5 %; Eosinophils # 0.3 K/mcL (0.0-0.6); Eosinophils % 4.6 %; Hematocrit 35.4 % (35.3-44.9); Hemoglobin 10.4 g/dL (11.5-15.4); Immature Granulocytes % 0.3 % (0-4); Lymphocytes # 2.1 K/mcL (0.6-4.6); Lymphocytes % 33.6 %; Mean Corpuscular HGB Conc 29.4 g/dL (31.6-35.5); Mean Corpuscular Hemoglobin 21.5 pg (28.0-33.3); Mean Corpuscular Volume 73.1 fL (83.0-100.0); Mean Platelet Volume 9.5 fL (9.4-12.4); Monocytes # 0.5 K/mcL (0.0-1.3); Monocytes % 7.2 %; Neutrophils # 3.4 K/mcL (1.6-8.9); Platelet Count 261 K/mcL (140-400); Red Blood Count 4.84 M/mcL (3.82-4.97); Red Cell Distribution Width 17.3 % (11.5-14.5); Segmented Neutrophils % 53.8 %; White Blood Count 6.3 K/mcL (4.3-11.1)
[2019-01-26 05:41] LABS: BUN/Creatinine Ratio 23 (6-26); Blood Urea Nitrogen 19 mg/dL (8-23); Calcium 9.8 mg/dL (8.6-10.3); Carbon Dioxide 28 mEq/L (23-29); Chloride 97 mEq/L (98-107); Chol/HDL Ratio 7.3 (0-4.9); Glucose 370 mg/dL (70-105); Magnesium 1.6 mg/dL (1.6-2.6); Osmolality,Calculated 293 (280-300); Phosphorous 3.9 mg/dL (2.7-4.5); Potassium 3.8 mEq/L (3.5-5.1); Sodium 133 mEq/L (136-145); eGFR For African Americans > 60 (> 60); eGFR For Non-African Americans > 60 (> 60)
[2019-01-26 07:17] LABS: Estimated Average Glucose 295 mg/dl
[2019-01-26] MEDS: Insulin LISPRO 300 UNITS/3 ML VIAL SQ SCH ×3 (09:30→16:42)
[2019-01-26] MEDS: hydroCHLOROthiazide 25 MG TABLET PO SCH (09:30)
[2019-01-26] MEDS: Isosorbide MONOnitrate (24 HR) 30 MG TAB.ER.24H PO SCH (09:30)
[2019-01-26] MEDS: PARoxetine 20 MG TABLET PO SCH (09:31)
[2019-01-26] MEDS: Aspirin 81 MG TAB.CHEW PO SCH (09:31)
[2019-01-26] MEDS ORDERED: Verapamil 5 MG/2 ML VIAL ONE (09:55)
[2019-01-26] MEDS ORDERED: Nitroglycerin 1,000 MCG/10 ML VIAL IV ONE (09:56)
[2019-01-26] MEDS ORDERED: ISOVUE-370 200 ML INFUS..BTL ONE (09:56)
[2019-01-26] MEDS ORDERED: *HR* Heparin 10,000 UNIT/10 ML VIAL ONE (09:56)
[2019-01-26] MEDS ORDERED: Heparin 1,000 UNITS/500 mL 500 ML ONE (09:56)
[2019-01-26] MEDS ORDERED: 0.9 % Sodium Chloride 2,000 ML ONE (09:56)
[2019-01-26] MEDS ORDERED: *HR* FentaNYL (PF) 100 MCG/2 ML VIAL ONE (10:27)
[2019-01-26] MEDS ORDERED: *HR* Midazolam HCl 2 MG/2 ML VIAL ONE (10:27)
[2019-01-26] MEDS ORDERED: Tirofiban 12.5 MG/250ML 0 MG/0 ML BAG ONE (10:55)
[2019-01-26] MEDS ORDERED: Acetaminophen/Aspirin/Caffeine TABLET PO ONE (12:01)
[2019-01-26] MEDS: Insulin DETEMIR 100 UNIT/ML X5UNITS SQ SCH ×2 (12:13→20:30)
[2019-01-27 05:19] LABS: Basophils % 0.4 %; Eosinophils # 0.4 K/mcL (0.0-0.6); Eosinophils % 5.4 %; Hematocrit 36.2 % (35.3-44.9); Hemoglobin 10.6 g/dL (11.5-15.4); Immature Granulocytes % 0.1 % (0-4); Lymphocytes # 2.4 K/mcL (0.6-4.6); Lymphocytes % 32.8 %; Mean Corpuscular HGB Conc 29.3 g/dL (31.6-35.5); Mean Corpuscular Hemoglobin 21.5 pg (28.0-33.3); Mean Corpuscular Volume 73.3 fL (83.0-100.0); Mean Platelet Volume 9.4 fL (9.4-12.4); Monocytes # 0.5 K/mcL (0.0-1.3); Monocytes % 7.1 %; Neutrophils # 3.9 K/mcL (1.6-8.9); Platelet Count 275 K/mcL (140-400); Red Blood Count 4.94 M/mcL (3.82-4.97); Red Cell Distribution Width 17.3 % (11.5-14.5); Segmented Neutrophils % 54.2 %; White Blood Count 7.2 K/mcL (4.3-11.1)
[2019-01-27 05:36] LABS: BUN/Creatinine Ratio 28 (6-26); Blood Urea Nitrogen 17 mg/dL (8-23); Calcium 9.6 mg/dL (8.6-10.3); Carbon Dioxide 25 mEq/L (23-29); Chloride 100 mEq/L (98-107); Glucose 213 mg/dL (70-105); Osmolality,Calculated 286 (280-300); Potassium 3.5 mEq/L (3.5-5.1); Sodium 134 mEq/L (136-145); eGFR For African Americans > 60 (> 60); eGFR For Non-African Americans > 60 (> 60)
[2019-01-27] MEDS: *HR* Enoxaparin 40 MG/0.4 ML SYRINGE SQ SCH (05:39)
[2019-01-27 07:18] VITALS: BP 155/74
[2019-01-27] MEDS: Insulin LISPRO 300 UNITS/3 ML VIAL SQ SCH (08:36)
[2019-01-27] MEDS: Insulin DETEMIR 100 UNIT/ML X5UNITS SQ SCH (08:37)
[2019-01-27] MEDS: PARoxetine 20 MG TABLET PO SCH (08:38)
[2019-01-27] MEDS: Aspirin 81 MG TAB.CHEW PO SCH (08:38)
[2019-01-27] MEDS: Isosorbide MONOnitrate (24 HR) 30 MG TAB.ER.24H PO SCH (08:38)
[2019-01-27] MEDS: hydroCHLOROthiazide 25 MG TABLET PO SCH (08:38)
== END 2019-01-27 11:15 | disposition home or self-care (01) ==
LOC: SUATTDRO → EMEROOARM 14:04 → 2ANU 14:04 → SUATTDRO 19:15 → 2ANU 19:44
PROVIDERS: ADMIT Internal Medicine; ATTEND Internal Medicine